=== PATIENT | female | born 1985 | race Caucasian/White ===

== ENCOUNTER 2021-04-12 16:01 | Emergency (ER) | payer MEDICAID, OTHER ==
[~2021-04-12] VITALS: Ht 177.8 cm; Wt 109.0 kg
[2021-04-12] MEDS ORDERED: albuterol (16:20)
[2021-04-12] MEDS ORDERED: KETOROLAC 30MG/ML VIAL IV STA (18:29)
[2021-04-12 20:06] LABS: BASOPHILS % 0.2 % (0.0-2.0); EOSINOPHILS % 0.1 % (0.0-5.0); HEMATOCRIT. 37.3 % (36.0-48.0); HEMOGLOBIN. 12.9 g/dL (12.0-16.0); LYMPHOCYTES % 8.7 % (20.0-50.0); MEAN CORPUSCULAR HEMOGLOBIN 31.8 pg (28.0-32.0); MEAN CORPUSCULAR VOLUME 91.6 fL (81.0-99.0); MEAN PLATELET VOLUME 6.6 fl (7.4-10.4); MONOCYTES % 4.4 % (2.0-8.0); NEUTROPHILS % 86.6 % (40.0-76.0); PLATELET 340 x1000/uL (130-400); RED BLOOD CELL COUNT 4.07 mill/uL (4.2-5.4); RED CELL DISTRIBUTION WIDTH 12.7 % (11.6-14.6)
[2021-04-12 20:14] LABS: CHLORIDE 106 mEq/L (98-107)
[2021-04-12] MEDS ORDERED: IOHEXOL-350 100 ML BOTTLE ONE (21:39)
[2021-04-12] MEDS ORDERED: ALBU6.7H9 INH (23:05)
[2021-04-12 23:21] VITALS: BP 125/64
== END 2021-04-12 23:28 | disposition home or self-care (01) ==
LOC: ER 16:01
DX: R91.8 Other nonspecific abnormal finding of lung field (principal); R07.89 Other chest pain; Z98.890 Other specified postprocedural states; Z88.2 Allergy status to sulfonamides; Z88.8 Allergy status to other drugs, medicaments and biological substances
CPT/HCPCS: 36415; 71275; 80053; 81025; 84484; 85025; 85379; 93005; 93970; 96374; 99285; J1885; Q9967